=== PATIENT | female | born 1935 | race Caucasian/White ===

== ENCOUNTER 2016-08-02 15:39 | Observation (INO) | payer OTHER ==
--- NOTE | ~2016-08-02 | CO ---
Unit #: [id number] #: [id number] Patient: DAVE WU [id number] [facility] [address], [place] [address] [id number] I MR#: [id number] NAME: DAVE WU ROOM: 54 Age: 80 Sex: F Admission Date: 08/02/2016 : 1935 Attending Physician: Tad Hong M.D. Primary Care Physician: Lizbeth Lawler M.D. Consultation Date: 08/03/2016 CONSULTATION REPORT CHIEF COMPLAINT Left elbow pain. HISTORY OF PRESENT ILLNESS Ms. Allen is an 80-year-old female with a history of aortic stenosis, status post TAVR, chronic systolic congestive heart failure, and aortic aneurysm with chronic venous insufficiency, and COPD, who presented to the [facility] ER yesterday after a fall. She states that she was walking to her chair when she began to weak and fell to the ground. She was experiencing left elbow pain after the fall and was brought to the ER for further workup. She denied any lightheadedness or palpitations prior to this episode. X-rays were taken of the left elbow in the ER, which revealed positive fat pad sign. Orthopedics were then consulted for further workup. She continues to locate the majority of her pain in the left elbow. She is currently in a posterior long-arm splint. The patient's daughter is in room with her today and is helping to give some other history. PAST MEDICAL HISTORY 1. Hypertension. 2. Left bundle-branch block. 3. Aortic stenosis. 4. Chronic systolic congestive heart failure. 5. Aortic aneurysm. 6. Chronic venous insufficiency. 7. COPD. 8. Hypothyroidism. 9. Osteopenia. 10. Depression. 11. Hyperlipidemia. 12. Insomnia. 13. Obesity. 14. Weakness. PAST SURGICAL HISTORY 1. Aortic valve replacement in 09/2012. 2. Hysterectomy. 3. PCI with stent x3. ALLERGIES To atorvastatin. MEDICATIONS Synthroid 112 mcg 1 tablet p.o. daily; Coreg 12.5 mg tab q.a.m. plus 6.25 Unit #: [id number] #: [id number] Patient: DAVE WU mg tab q.a.m.; Plavix 75 mg p.o. daily; Lasix 40 mg Wednesday, Wednesday, , and Wednesday; Bumex 1 mg Wednesday, Wednesday, and Wednesday; potassium 10 mEq p.o. daily; Evista 60 mg p.o. daily; Prozac 20 mg p.o. daily; lisinopril 5 mg p.o. daily; multivitamin 1 tablet p.o. daily; vitamin D3 of 2000 units p.o. daily; vitamin B complex 1 tablet p.o. daily; krill oil 500 mg p.o. daily; pravastatin 40 mg 1 tablet p.o. daily; temazepam 22.5 mg tablet p.o. daily; aspirin 81 mg p.o. daily; Nitrostat 0.4 mg p.o. sublingual as needed for chest pain; DuoNeb; Flovent HFA 1 puff inhalation b.i.d.; Flonase 1 squirt each nostril daily. SOCIAL HISTORY No history of tobacco, alcohol, or illicit drug use. The patient's son lives with her and her daughter frequently visit to assist with any care needs. FAMILY HISTORY Noncontributory to current illness. REVIEW OF SYSTEMS A complete 10-point review of system was completed and are as noted in the HPI. PHYSICAL EXAMINATION GENERAL APPEARANCE: A healthy appearing 80-year-old female, lying in bed, in no acute distress. VITAL SIGNS: Temperature is 98.3, heart rate 69, respiratory rate 16, blood pressure 139/53. HEENT: Pupils are equal, round, and reactive to light. The patient is normocephalic. NECK: Supple without lymphadenopathy or thyromegaly. CHEST: Symmetric chest rise. No increased work of breathing. CARDIOVASCULAR: Regular rate and rhythm. SKIN: Warm and dry without any rash. PSYCHIATRIC: The patient is awake, alert, or oriented x3. The patient is cooperative. NEUROLOGIC: Cranial nerves II through XII are grossly intact. EXTREMITIES: The left upper extremity was examined. She is in a long-arm posterior splint. She is neurovascularly intact in the median, ulnar, and radial nerves. She has normal sensation to light touch in all 5 digits. Her fingers are warm and well perfused. DIAGNOSTIC STUDIES LABORATORY RESULTS: CBC showed white blood cell count of 8.9, hemoglobin of 11.7, hematocrit of 36.9. IMAGING STUDIES: Plain film radiographs reviewed of the left elbow, which revealed positive anterior and posterior fat pad sign. There is no evidence of a well-defined fracture. X-rays were also reviewed of the left shoulder, humerus, forearm, pelvis, tibia, fibula, knee, which were all negative for any acute fracture. ASSESSMENT Left elbow pain and fusion. PLAN She has left elbow pain and fusion after a fall yesterday at her home. X-rays of the left elbow revealed positive anterior and posterior fat pad Unit #: [id number] #: [id number] Patient: DAVE WU sign concerning for possible central fracture. We will go ahead and treat this injury as a fracture and keep her in the posterior long-arm splint. No further workup or surgery is indicated at this time. She remain nonweightbearing of the left upper extremity. She may wear her sling as needed for comfort. PT and OT will work with her in the hospital on left hand range of motion as well as lower extremity strengthening. The case planner was consulted to evaluate for home health needs regarding physical therapy and occupational therapy. She will follow up with Dr. Kelly in the office in 2 weeks' time for repeat x-rays of the left elbow. Dictated by... Emma Darling APRN for Amarilys Kilpatrick/terry TD: 08/03/2016 23:43 JOB #: [id number] CONSULTATION REPORT Page 1 of 1 X EMMA DARLING APRN X CONSULTATION REPORT
--- NOTE | ~2016-08-02 | CR172 ---
[facility] A Service of [facility] & [facility] RADIOLOGY TEXT RESULTS PATIENT: DAVE WU LOCATION: [facility] 547- : 35 UNIT #: [id number] AGE: [address]: Tad Hong MD SEX: F ORDER DR: [id number] [facility] [address] [place], [place] [address] [id number] I MR#: [id number] Acc #: [id number] NAME: DAVE WU : 1935 SEX: F STUDY DATE/TIME: 08/02/2016 15:27 UNIT: CEDOF ROOM: 15179 STUDY DESCRIPTION: CR Knee 3 Views Lt Attending Physician: Heron Hilario M.D. Ordering Physician: Dante Moon M.D. Primary Care Physician: Lizbeth Lawler M.D. MEDICAL IMAGING REPORT This report is preliminary unless electronic signature is present EXAM Left knee series, 08/02/2016 COMPARISON Left tib-fib series, 08/02/2016 HISTORY Left knee pain from 08/02/2016 post fall. FINDINGS 3 views of the left knee were obtained. There is mild diffuse bony osteopenia. No acute displaced fracture, dislocation or joint effusion is seen. Surrounding soft tissues do not demonstrate any focal significant abnormality or radiopaque foreign body. Dictated by... Michelle Browning M.D. THIS IS AN ELECTRONICALLY VERIFIED REPORT Michelle Browning M.D. at 08/03/2016 1:47 PM CPR/ljd TD: 08/03/2016 03:25 JOB #: [id number] MEDICAL IMAGING REPORT Page 1 of 1 COPY
--- NOTE | ~2016-08-02 | CR71 ---
[facility] A Service of [facility] & [facility] RADIOLOGY TEXT RESULTS PATIENT: DAVE WU LOCATION: [place] [address] : 35 UNIT #: [id number] AGE: [address]: Tad Hong MD SEX: F ORDER DR: [id number] [facility] [address] [place], [place] [address] [id number] I MR#: [id number] Acc #: [id number] NAME: DAVE WU : 1935 SEX: F STUDY DATE/TIME: 08/02/2016 15:17 UNIT: [facility] ROOM: 81398 STUDY DESCRIPTION: CR Chest Single View Attending Physician: Heron Hilario M.D. Ordering Physician: Dante Moon M.D. Primary Care Physician: Lizbeth Lawler M.D. MEDICAL IMAGING REPORT This report is preliminary unless electronic signature is present EXAM Single view of the chest, 08/02/2016 at 1517 hours. COMPARISON Single view of the chest dated 08/09/2015. HISTORY Shortness of air with activity, chest pain on 08/02/2016. FINDINGS Single view of the chest was obtained. No significant interval change. Stents are noted in the aorta along the arch and also in the region of the aortic valve and proximal aorta. Stable. Correlate with procedural notes. There is a stable prominent heart is this poor inspiratory film. Lungs do not demonstrate any significant abnormality. Dictated by... Michelle Browning M.D. THIS IS AN ELECTRONICALLY VERIFIED REPORT Michelle Browning M.D. at 08/03/2016 1:47 PM CPR/ljd TD: 08/03/2016 01:59 JOB #: [id number] MEDICAL IMAGING REPORT Page 1 of 1 COPY
--- NOTE | ~2016-08-02 | CR93 ---
[facility] A Service of [facility] RADIOLOGY TEXT RESULTS PATIENT: DAVE WU LOCATION: [facility] 547-01 : 35 UNIT #: [id number] AGE: [address]: Tad Hong MD SEX: F ORDER DR: [id number] [facility] [address] [place], [place] [address] [id number] I MR#: [id number] Acc #: [id number] NAME: DAVE WU : 1935 SEX: F STUDY DATE/TIME: 08/02/2016 15:20 UNIT: CEDOF ROOM: 99171 STUDY DESCRIPTION: CR Elbow Min 3 Views Lt Attending Physician: Heron Hilario M.D. Ordering Physician: Dante Moon M.D. Primary Care Physician: Lizbeth Lawler M.D. MEDICAL IMAGING REPORT This report is preliminary unless electronic signature is present EXAM Left elbow series, 08/02/2016 COMPARISON Left humerus and forearm series dated 08/02/2016. HISTORY Left elbow pain from 08/02/2016. FINDINGS 3 views of the left elbow were obtained. No obvious acute displaced fracture or dislocation is seen. There is a small anterior and posterior fat pad sign noted. Minimal effusion cannot be completely excluded but there is no significant joint effusion or obvious acute displaced fracture noted. No destructive bony mass is seen. Soft tissues do not demonstrate a radiopaque foreign body. IMPRESSION Anterior and posterior fat pads are noted but they are small. Mild effusion cannot be completely excluded. Well-defined fracture is not seen, particularly in the radial head and neck. If there is persistent clinical concern for a subtle occult fracture, followup can be obtained. Dictated by... Michelle Browning M.D. THIS IS AN ELECTRONICALLY VERIFIED REPORT Michelle Browning M.D. at 08/03/2016 1:47 PM CPR/ljd TD: 08/03/2016 02:05 [facility] A Service of [facility] RADIOLOGY TEXT RESULTS PATIENT: DAVE WU LOCATION: [facility] 547-01 : 35 UNIT #: [id number] AGE: [address]: Tad Hong MD SEX: F ORDER DR: JOB #: [id number] MEDICAL IMAGING REPORT Page 1 of 1 COPY
--- NOTE | ~2016-08-02 | CR229 ---
[facility] A Service of [facility] & [facility] RADIOLOGY TEXT RESULTS PATIENT: DAVE WU LOCATION: [facility] 547-01 : 35 UNIT #: [id number] AGE: [address]: Tad Hong MD SEX: F ORDER DR: [id number] [facility] [address] [place], [place] [address] [id number] I MR#: [id number] Acc #: [id number] NAME: DAVE WU : 1935 SEX: F STUDY DATE/TIME: 08/02/2016 15:18 UNIT: CEDOF ROOM: 54068 STUDY DESCRIPTION: CR Shoulder Min 2 View Lt Attending Physician: Heron Hilario M.D. Ordering Physician: Dante Moon M.D. Primary Care Physician: Lizbeth Lawler M.D. MEDICAL IMAGING REPORT This report is preliminary unless electronic signature is present EXAM Left shoulder series, 08/02/2016 COMPARISON None. HISTORY Left shoulder pain today. FINDINGS 3 views of the left shoulder were obtained. No acute displaced fracture or dislocation. Mild arthritic changes are noted. Surrounding soft tissues are unremarkable. There is a vascular stent graft involving the aortic arch and portions of the adjacent descending thoracic aorta. Dictated by... Michelle Browning M.D. THIS IS AN ELECTRONICALLY VERIFIED REPORT Michelle Browning M.D. at 08/03/2016 1:47 PM CPR/ljd TD: 08/03/2016 02:22 JOB #: [id number] MEDICAL IMAGING REPORT Page 1 of 1 COPY
--- NOTE | ~2016-08-02 | CR206 ---
[facility] A Service of [facility] & [facility] RADIOLOGY TEXT RESULTS PATIENT: DAVE WU LOCATION: [facility] 547- : 35 UNIT #: [id number] AGE: [address]: Tad Hong MD SEX: F ORDER DR: [id number] [facility] [address] [place], [place] [address] [id number] I MR#: [id number] Acc #: [id number] NAME: DAVE WU : 1935 SEX: F STUDY DATE/TIME: 08/02/2016 15:26 UNIT: CEDOF ROOM: 76727 STUDY DESCRIPTION: CR Pelvis 1 or 2 Views Attending Physician: Heron Hilario M.D. Ordering Physician: Dante Moon M.D. Primary Care Physician: Lizbeth Lawler M.D. MEDICAL IMAGING REPORT This report is preliminary unless electronic signature is present EXAM Single view of the pelvis, 08/02/2016 COMPARISON None. HISTORY Patient fell today with pelvic pain. FINDINGS Single view of the pelvis was obtained. Mild arthritic changes are in bilateral hip joints, bilateral SI joints and lower lumbar spine. No well defined acute displaced fracture or dislocation is seen. There is mild diffuse bony osteopenia. Moderate stool burden is noted in the visualized rectosigmoid colon. Phleboliths and arteriovascular calcifications are noted in the pelvic soft tissues and in the right upper leg. Dictated by... Michelle Browning M.D. THIS IS AN ELECTRONICALLY VERIFIED REPORT Michelle Browning M.D. at 08/03/2016 1:47 PM CPR/ljcindy TD: 08/03/2016 02:33 JOB #: [id number] MEDICAL IMAGING REPORT Page 1 of 1 COPY
--- NOTE | ~2016-08-02 | CT71 ---
[facility] A Service of [facility] & [facility] RADIOLOGY TEXT RESULTS PATIENT: DAVE WU LOCATION: [facility] 547-01 : 35 UNIT #: [id number] AGE: [address]: Tad Hong MD SEX: F ORDER DR: [id number] [facility] [address] [place], [place] [address] [id number] I MR#: [id number] Acc #: [id number] NAME: DAVE WU : 1935 SEX: F STUDY DATE/TIME: 08/02/2016 15:57 UNIT: CEDOF ROOM: 31274 STUDY DESCRIPTION: CT Head Wo Contrast Attending Physician: Heron Hilario M.D. Ordering Physician: Dante Moon M.D. Primary Care Physician: Lizbeth Lawler M.D. MEDICAL IMAGING REPORT This report is preliminary unless electronic signature is present EXAM CT head without contrast, 08/02/[address] head without contrast dated 08/09/2015. HISTORY Fell at 1300 hours. Dizziness caused fall. This CT exam was performed with one or more of the following radiation dose reduction techniques: automatic exposure control, adjustment of mA and/or kV according to patient size, and iterative reconstruction. FINDINGS CT of the head was obtained without contrast in the axial plane as per the protocol. Patchy severe hypodensities are noted in the brain involving subcortical white matter, periventricular white matter, bilateral basal ganglia. Atherosclerotic arteriovascular calcifications are noted in bilateral intracranial internal carotid arteries. Nasal septum is deviated to the right with an apical spur. There is severe left sphenoid sinus mucosal thickening with obstruction of the left sphenoethmoid recess. Wall thickening of the left sphenoid sinus is noted suggestive of bony osteitis. Mastoid air cells are well-aerated. Orbits and the ocular structures do not demonstrate any significant abnormality. There appears to be focal asymmetrical soft tissue irregular density in the left posterolateral suboccipital region measuring 1.3 cm in thickness and has a greatest length of 2.8 cm. It could be related to swelling in this region. No underlying fracture or acute intracranial hemorrhage is seen. IMPRESSION 1. Redemonstrated are the patchy hypodensities in the brain, likely related to moderate to severe chronic microvascular ischemic change [facility] A Service of [facility] & [facility] RADIOLOGY TEXT RESULTS PATIENT: DAVE WU LOCATION: [facility] 547-01 : 35 UNIT #: [id number] AGE: [address]: Tad Hong MD SEX: F ORDER DR: based on age and statistics. Evaluation of superimposed acute lacunar infarcts are limited in this modality. 2. No acute intracranial hemorrhage or midline shift. 3. There is dilatation of the ventricles, stable when compared to the prior study and could be related to central atrophy. Developing normal pressure hydrocephalus can be considered in the appropriate clinical setting. It has not significantly worsened in 1 year. 4. There is an interval new asymmetrical soft tissue density noted within the left posterolateral suboccipital scalp and soft tissue. It measures about 1.3 cm in thickness and is about 2.8 cm in greatest length. It represents inflammatory post-traumatic or post infectious change . Correlate clinically. No underlying fracture. Dictated by... Michelle Browning M.D. THIS IS AN ELECTRONICALLY VERIFIED REPORT Michelle Browning M.D. at 08/03/2016 1:48 PM CPR/ljcinyd TD: 08/03/2016 03:50 JOB #: [id number] MEDICAL IMAGING REPORT Page 1 of 1 COPY
--- NOTE | ~2016-08-02 | CO ---
Unit #: [id number] #: [id number] Patient: DAVE WU [id number] [place] [id number] [facility] [place], [place] [address] [id number] I MR#: [id number] NAME: DAVE WU ROOM: 547 Age: 80 Sex: F Admission Date: 08/02/2016 : 1935 Attending Physician: Tad Hong M.D. Primary Care Physician: Lizbeth Lawler M.D. CONSULTATION REPORT PRIMARY CARE PHYSICAN. REASON FOR CONSULTATION Cardiac management. HISTORY OF PRESENT ILLNESS This is an 80-year-old white female, who is known to Dr. Salinas, and has a history of coronary artery disease, where she had stent placement to the right coronary artery in 2012. At that time, the circumflex artery had nonobstructive disease of 40% to 50%. She is known to have aortic stenosis and underwent TAVR in 09/2012 at [facility] [place] [facility]. She is admitted after a fall at home. She is a poor historian, but the daughter who is at bedside stated that she was walking in her home from one room to other and felt weakness. Her son who was assisting her went to grab a chair, but before he returned she fell to the floor. She denies any syncope or loss of consciousness. She has been progressively weak since her TAVR in 2012. She was diagnosed with lung cancer a year ago and opted not to proceed with any treatment. According to the daughter, she had a PET scan done last year and the cancer was limited to the lungs at that time. The patient states she is short of breath all the time, but denies leg edema, paroxysmal nocturnal dyspnea, or orthopnea. She has no reported chest pain, palpitations, or dizziness. In the emergency room, she was hypertensive with blood pressure 207/80 mmHg. Troponin is negative. There were no acute EKG changes. She had a complaint of ankle and elbow pain and the films were concerning for possible subtle fracture in her left elbow, but no surgical intervention is needed at this time. Orthostatic blood pressures were negative. There was no evidence of arrhythmias noted this admission. Electrolytes within normal limits. TSH is normal. PAST MEDICAL HISTORY 1. PCI with drug-eluting stent to the proximal and mid right coronary artery with drug-eluting stents x2 to the mid and proximal right coronary artery on 09/07/2012 at [facility]. Circumflex artery at that time 40% to 50%, not dilated. No information on LAD. 2. Aortic stenosis, status post TAVR in 09/2012 at [facility]. 3. Hypertension. 4. Hyperlipidemia. 5. Left bundle-branch block. 6. Congestive heart failure. 7. COPD. 8. Asthma. 9. Hypothyroidism. Unit #: [id number] #: [id number] Patient: DAVE WU 10. Obesity. 11. Left upper lobe cancer, declined treatment. 12. Former smoker. PAST SURGICAL HISTORY 1. Hysterectomy. 2. TAVR. SOCIAL HISTORY The patient is cared for by her son and daughter. She ambulates with a walker. She quit smoking years ago. She denies illicit drug or alcohol use. FAMILY HISTORY Father in his 70s from myocardial infarction. Had a brother, who in his 70s from congestive heart failure, but he had heart attack. ALLERGIES Lipitor. HOME MEDICATIONS Levothyroxine 112 mcg daily; carvedilol 18.75 mg daily; carvedilol 12.5 mg q.h.s.; Plavix 75 mg daily; furosemide 40 mg four times a week; Bumex 1 mg three times a week; potassium chloride 10 mEq daily; Evista 60 mg daily; Prozac 20 mg q.a.m., 10 mg q.p.m.; lisinopril 5 mg daily; multivitamin one tablet daily; vitamin D3 2000 units daily; vitamin B complex one tablet daily; krill oil 500 mg daily; pravastatin 40 mg q.h.s.; Restoril 22.5 mg q.h.s.; aspirin 81 mg daily; Nitrostat 0.4 mg sublingual q.5 minutes x3 p.r.n.; Flonase one spray each nostril daily; Combivent mini-nebs q.4 hours; Flovent inhaled b.i.d.; MiraLAX 17 g daily. REVIEW OF SYSTEMS CONSTITUTIONAL: Negative for fever or chills. Has no report of weight gain or weight loss. Positive for weakness. HEENT: No headache, hearing, or vision changes, difficulty with swallowing. No dizziness. CARDIOVASCULAR: Has no symptoms of angina. Denies palpitations. No paroxysmal nocturnal dyspnea or orthopnea. Denies syncope or near syncope. RESPIRATORY: Reports persistent dyspnea at rest and on exertion. No cough or hemoptysis. GASTROINTESTINAL: No abdominal pain, nausea, or vomiting. No constipation or melena. EXTREMITIES: Negative for lower extremity edema. PHYSICAL EXAMINATION VITAL SIGNS: Blood pressure 139/53, heart rate 70, temperature 97.5, BMI of 38. GENERAL: This is an 80-year-old elderly white female, who is in no acute respiratory distress. NEUROLOGIC: She is awake, alert, and oriented. There were no focal weaknesses. NECK: Trachea is midline. No thyromegaly or lymphadenopathy. No jugular venous distention. HEART: S1 and S2. Heart sounds are normal. No murmurs, rubs, or clicks. Regular rate and rhythm. LUNGS: With diminished breath sounds without rales, rhonchi, or wheezes. ABDOMEN: Soft and nontender with bowel sounds are present. EXTREMITIES: Without leg edema. Unit #: [id number] #: [id number] Patient: DAVE WU SKIN: Warm and dry. DIAGNOSTIC STUDIES LABORATORY RESULTS: Glucose 85, BUN 32, creatinine 1.2. Sodium 139, potassium 4.1. Troponin less than 0.05 and less than 0.03. White count 8.2, hemoglobin 11.4, hematocrit 35.7, platelet count is 188. IMAGING STUDIES: Chest x-ray shows no active disease. CARDIOVASCULAR STUDIES: EKG shows normal sinus rhythm with a rate of 72 beats per minute with a left bundle-branch block. IMPRESSION 1. Weakness, status post fall. 2. Hypertension. 3. Hyperlipidemia. 4. History of transcatheter aortic valve replacement in 09/2012. 5. Coronary artery disease with percutaneous coronary intervention and stent to the proximal and mid right coronary artery in 08/2012. 6. Old left bundle-branch block. 7. Chronic heart failure. 8. Ankle and elbow pain. PLAN 1. Cardiology was consulted for cardiac management. There was no evidence of an acute myocardial infarction with negative troponin. EKG shows left bundle-branch block, which is documented per EKG in 2016. 2. Records from [place] were obtained, which revealed percutaneous coronary intervention and stent to the right coronary artery in 2012. Circumflex artery had nonobstructive disease. No report if there was any LAD stenosis. 3. No heart failure is noted on examination. 4. Orthostatic blood pressures are normal. 5. TSH is normal. 6. We will obtain 2D echocardiogram to evaluate left ventricular systolic function. 7. Follow up with Dr. Salinas at discharge. Thank you for allowing us to assist in this patient's care. Dictated by... Florin Palmer/terry TD: 08/04/2016 04:35 JOB #: [id number] CC: Amarilys Bryant M.D. Unit #: [id number] #: [id number] Patient: DAVE WU CONSULTATION REPORT Page 1 of 1 X Austin Montez MORNING CAREGIVER X CONSULTATION REPORT
--- NOTE | ~2016-08-02 | EKG ---
PATIENT: DAVE WU UNIT #: [id number] Ventricular Rate: 72 BPM Atrial Rate: 72 BPM P-R Interval: 126 ms QRS Duration: 160 ms Q-T Interval: 474 ms QTC Calculation(Bezet): 519 ms P [place]: 62 degrees Calculated R [place]: 4 degrees Calculated T [place]: 140 degrees Diagnosis Line: Normal sinus rhythm Diagnosis Line: Left bundle branch block Diagnosis Line: Abnormal ECG Diagnosis Line: When compared with ECG of 09-AUG-2015 10:22, Diagnosis Line: No significant change was found Diagnosis Line: Confirmed by TAYLOR MALDONADO MD ([id number]) on 08/02/2016 Diagnosis Line: 10:02:06 PM INTERPRETING MD: JOEL MARTINEZ
--- NOTE | ~2016-08-02 | CR252 ---
[facility] A Service of [facility] & [facility] RADIOLOGY TEXT RESULTS PATIENT: DAVE WU LOCATION: [facility] 547- : 35 UNIT #: [id number] AGE: [address]: Tad Hong MD SEX: F ORDER DR: [id number] [facility] [address] [place], [place] [address] [id number] I MR#: [id number] #: [id number] NAME: DAVE WU : 1935 SEX: F STUDY DATE/TIME: 08/02/2016 15:28 UNIT: CED ROOM: 56915 STUDY DESCRIPTION: CR Tibia and Fibula 2 Views Lt Attending Physician: Heron Hilario M.D. Ordering Physician: Dante Moon M.D. Primary Care Physician: Lizbeth Lawler M.D. MEDICAL IMAGING REPORT This report is preliminary unless electronic signature is present EXAM Left tib-fib series, 08/02/2016 COMPARISON Left knee series, 08/02/2016. HISTORY Left leg pain following fall today. FINDINGS 2 views of the left tibia and fibula were obtained. No acute displaced fracture or dislocation. There appears to be mild diffuse bony osteopenia. Soft tissues demonstrate mild atherosclerotic vascular calcifications. Dictated by... Michelle Browning M.D. THIS IS AN ELECTRONICALLY VERIFIED REPORT Michelle Browning M.D. at 08/03/2016 1:47 PM CPR/ljd TD: 08/03/2016 03:27 JOB #: [id number] MEDICAL IMAGING REPORT Page 1 of 1 COPY
--- NOTE | ~2016-08-02 | HP ---
Unit #: [id number] #: [id number] Patient: DAVE WU [id number] [facility]. [place], [place] [address] [id number] I MR#: [id number] NAME: DAVE WU ROOM: 547 Age: 80 Sex: F Admission Date: 08/02/2016 : 1935 Attending Physician: Tad Hong M.D. Primary Care Physician: Lizbeth Lawler M.D. HISTORY AND PHYSICAL CHIEF COMPLAINT "I fell." HISTORY OF PRESENT ILLNESS An 80-year-old female with a history of aortic stenosis status post TVAR, chronic systolic congestive heart failure and aortic aneurysm with chronic venous insufficiency and COPD, who presents with an episode where she felt really weak and she could not make it to the chair and she fell. She seemed to have contused her left elbow and x-rays done in the ER seem to reveal a questionable left elbow fracture. She denies any lightheadedness prior to this and denies any chest pain or palpitations prior to this episode. The last time she fell was about a year ago. Her son lives with her. The patient is a decent historian; however, history is from collateral sources which include her daughter. Other than that, she denies any dysuria or frequency. The patient denies any history of recent fall. PAST MEDICAL HISTORY Hypertension, history of left bundle branch block, aortic stenosis, chronic systolic congestive heart failure, aortic aneurysm, chronic venous insufficiency, COPD, (1) , hypothyroidism, osteopenia, major depressive disorder, hyperlipidemia, insomnia, obesity and weakness. PAST SURGICAL HISTORY Aortic valve replacement in September of 2012, hysterectomy, PCI with stents x3. SOCIAL HISTORY No tobacco use, alcohol use or illicit drug use. The patient's son lives with her. ALLERGIES Atorvastatin. MEDICATIONS 1. Levothyroxine 112 mcg one tablet every morning. 2. Coreg 12.5 mg one tablet in the morning and one tablet at time plus Coreg 6.25 mg one tablet p.o. in the morning. 3. Plavix 75 mg p.o. daily. 4. Lasix 40 mg Wednesday, Wednesday, and Wednesday. 5. Bumex 1 mg Wednesday, Wednesday, Wednesday. 6. Potassium 10 mEq one p.o. daily. 7. Evista 60 mg one p.o. daily. 8. Prozac 20 mg one p.o. daily. 9. Lisinopril 5 mg one p.o. daily. Unit #: [id number] #: [id number] Patient: DAVE WU 10. Multivitamin one tablet p.o. daily. 11. Vitamin D3 2,000 units p.o. daily. 12. Vitamin B complex one tablet p.o. daily. 13. Krill Oil 500 mg p.o. daily. 14. Pravastatin 40 mg one tablet p.o. daily. 15. Temazepam 22.5 mg one tablet p.o. daily. 16. Aspirin 81 mg p.o. daily. 17. Nitrostat 0.4 mg p.o. sublingual as needed p.r.n. chest pain. 18. DuoNeb. 19. Flovent HFA one puff inhalation b.i.d. 20. Flonase nasal one squirt each nostril daily. REVIEW OF SYSTEMS A complete 10-point review of systems has been done and pertinent positives are noted in the HPI. PHYSICAL EXAMINATION GENERAL APPEARANCE: Comfortable, not in distress. VITAL SIGNS: Blood pressure 187/86. Pulse 75. Respiratory rate 16. Temperature 97.8. HEENT: Pupils were equal, round, reactive to light and accommodation. NECK: Supple without thyromegaly. CHEST: Decreased breath sounds lung bases posteriorly. CARDIOVASCULAR: First and second heart sounds. A soft systolic murmur. EXTREMITIES: Bruising of the left elbow. The patient was able to move her left elbow without extreme limitation of motion. No lower extremity edema. LYMPHATIC: No palpable lymphadenopathy that I could appreciate. SKIN: Warm and dry without no rashes. DIAGNOSTIC STUDIES LABORATORY: Glucose 94, BUN and creatinine 36 and 1.2, sodium and potassium 143 and 4.3, chloride 106, bicarb 29, AST and ALT 18 and 14 respectively. CBC: WBC 8.9, hemoglobin and hematocrit 11.7 and 36.9 with a platelet count of 205. IMAGING: She had x-rays of her left shoulder, humerus, elbow, femur and pelvis and she had a chest x-ray as well. On the elbow, there seemed to be accentuation anterior and posterior fat pad which may indicate a subtle fracture. CARDIOVASCULAR: She had an EKG which showed normal sinus rhythm with left bundle branch block. Left bundle branch block is not new. ASSESSMENT AND PLAN 1. Presyncope. I am not exactly sure if this has anything to do with her atherosclerotic cardiovascular disease versus her medications. We will admit her for 23-hour observation and get orthostatic vitals. The patient seems to be stable volume roche with no evidence of bleeding. 2. Fall. This may be secondary to patient's debility with multiple comorbidities. We will get Physical Therapy, Occupational Therapy to see the patient. 3. Left elbow pain/fracture. We will get Ortho to see the patient. 4. CAD. 5. Aortic valve replacement. 6. Anxiety/depression. 7. CODE status is a FULL CODE. Unit #: [id number] #: [id number] Patient: DAVE WU 8. Disposition: This will be dependent on her symptomatology. She should be able to tolerate physical therapy appropriately. She will be stable for discharge within one to two days. Dictated by Amarilys Mead TD: 08/03/2016 07:40 JOB #: [id number] HISTORY AND PHYSICAL Page 1 of 1 X Heron Hilario MD HISTORY AND PHYSICAL
--- NOTE | ~2016-08-02 | DS ---
Unit #: [id number] #: [id number] Patient: DAVE WU [id number] [facility]. [place], [place] [address] [id number] I MR#: [id number] NAME: DAVE WU ROOM: 547 Age: 80 Sex: F Admission Date: 08/02/2016 : 1935 Discharge Date: 08/04/2016 Attending Physician: Tad Hong M.D. Primary Care Physician: Lizbeth Lawler M.D. DISCHARGE SUMMARY CONSULTANTS 1. Dr. Jiménez. 2. Dr. Kelly. ADMITTING DIAGNOSES 1. Fall. 2. History of aortic stenosis, status post transcatheter aortic valve replacement. 3. History of chronic systolic heart failure. 4. History of aortic aneurysm. 5. History of chronic obstructive pulmonary disease. 6. Laceration on the left elbow, status post suturing. 7. Left elbow pain and effusion with positive fat pad sign. Orthopedics recommends to treat as a fracture with nonweightbearing. The splint was removed secondary to increase in pain. HISTORY OF PRESENT ILLNESS The patient is an 80-year-old lady with multiple medical problems including aortic stenosis, status post TAVR, chronic systolic heart failure, and history of coronary artery disease, status post stent, who follows with Dr. Salinas at [facility], who presented to the hospital mainly because of fall and left elbow fracture. HOSPITAL COURSE She had lacerations on the left elbow which were sutured in the emergency room. She was seen by Cardiology who recommended no further workup at this point. She was seen by Orthopedic Surgery. They recommended her to follow in the clinic as an outpatient. She was offered home healthcare but she refused. I spoke with the patient and her daughter, and she wants to go home. I requested her to follow up with her electrician control equipment at [facility] and with primary care physician and also with Orthopedics in two weeks. PHYSICAL EXAMINATION ON DAY OF DISCHARGE VITAL SIGNS: Temperature 98.3, pulse rate 70, respirations 20, and blood pressure 150/55. GENERAL: Patient is alert and oriented x3, lying in the bed in no acute distress. HEENT: Normocephalic and atraumatic. No icterus. Pupils are equal, round, and reactive to light and accommodation. Extraocular muscles intact. NECK: Supple. No JVD. HEART: S1 and S2, regular rate and rhythm. CHEST: Bilateral equal air entry, clear to auscultation. ABDOMEN: Soft and nontender. Unit #: [id number] #: [id number] Patient: DAVE WU EXTREMITIES: Left laceration site looks clean. DISCHARGE MEDICATIONS 1. Combivent 3 mL mini-neb q.4 p.r.n. for shortness of breath. 2. Flonase 1 spray for allergies. 3. Flovent Diskus 250 mcg inhalation twice daily. 4. Fluoxetine (Prozac) 20 mg in the morning and 10 mg at bedtime. 5. Restoril 22.5 mg at bedtime p.r.n. insomnia. Kindly note, I am not giving any new prescription. 6. Coreg 18.75 mg in the morning and 12.5 mg at bedtime. 7. MiraLax 17 grams p.o. daily. 8. Bumex 1 mg p.o. 3 times weekly. 9. Lasix 40 mg on Wednesday, Wednesday, , and Wednesday. 10. Pravastatin 40 mg daily. 11. Lisinopril 5 mg daily. 12. Evista 60 mg daily. 13. Multivitamin 1 capsule p.o. daily. 14. Aspirin 81 mg daily. 15. Hydrocodone/Tylenol 5/325 mg 1 tab p.o. q.4 p.r.n. for pain. I am giving a prescription for 12 capsules. 16. Krill oil capsule 500 mg daily. 17. Plavix 75 mg daily. 18. KCl 10 mEq daily. 19. Synthroid 112 mcg p.o. daily. 20. Nitroglycerin 0.4 mg sublingual p.r.n. for chest pain. 21. Vitamin B-Complex 1 capsule p.o. daily. 22. Vitamin D3 at 2000 units p.o. daily. DISCHARGE INSTRUCTIONS All the discharge instructions were explained in detail to the patient. Total time spent in her care 35 minutes. Dictated by... Amarilys Choudhary/lorene TD: 08/04/2016 17:40 JOB #: [id number] DISCHARGE SUMMARY Page 1 of 1 X X DISCHARGE SUMMARY
--- NOTE | ~2016-08-02 | CR156 ---
[facility] A Service of [facility] & [facility] RADIOLOGY TEXT RESULTS PATIENT: DAVE WU LOCATION: [facility] 547- : 35 UNIT #: [id number] AGE: [address]: Tad Hong MD SEX: F ORDER DR: [id number] [facility] [address] [place], [place] [address] [id number] I MR#: [id number] Acc #: [id number] NAME: DAVE WU : 1935 SEX: F STUDY DATE/TIME: 08/02/2016 15:19 UNIT: CEDOF ROOM: 73321 STUDY DESCRIPTION: CR Humerus Min 2 View Lt Attending Physician: Heron Hilario M.D. Ordering Physician: Dante Moon M.D. Primary Care Physician: Lizbeth Lawler M.D. MEDICAL IMAGING REPORT This report is preliminary unless electronic signature is present EXAM Left humerus series, 08/02/2016 COMPARISON None. HISTORY Left humerus pain from 08/02/2016. FINDINGS 2 views of the left humerus was obtained. There is no evidence of fracture, dislocation, or radiopaque foreign body. No focal bone lesions are seen. IMPRESSION Normal humerus. Dictated by... Michelle Browning M.D. THIS IS AN ELECTRONICALLY VERIFIED REPORT Michelle Browning M.D. at 08/03/2016 1:47 PM CPR/ljd TD: 08/03/2016 02:02 JOB #: [id number] MEDICAL IMAGING REPORT Page 1 of 1 COPY
--- NOTE | ~2016-08-02 | CR132 ---
[facility]. [facility] A Service of [facility] & [facility] RADIOLOGY TEXT RESULTS PATIENT: DAVE WU LOCATION: [facility] 547- : 35 UNIT #: [id number] AGE: [address]: Tad Hong MD SEX: F ORDER DR: [id number] [facility] [address] [place], [place] [address] [id number] I MR#: [id number] Acc #: [id number] NAME: DAVE WU : 1935 SEX: F STUDY DATE/TIME: 08/02/2016 15:23 UNIT: CEDOF ROOM: 18564 STUDY DESCRIPTION: CR Forearm 2 View Lt Attending Physician: Heron Hilario M.D. Ordering Physician: Dante Moon M.D. Primary Care Physician: Lizbeth Lawler M.D. MEDICAL IMAGING REPORT This report is preliminary unless electronic signature is present EXAM Left forearm series, 08/02/2016 COMPARISON None. HISTORY Left forearm pain on 08/02/2016 post fall. FINDINGS Two views of the left forearm were obtained. No well defined acute displaced fracture or dislocation is discerned based on the current study. Refer to the left elbow series. Dictated by... Michelle Browning M.D. THIS IS AN ELECTRONICALLY VERIFIED REPORT Michelle Browning M.D. at 08/03/2016 1:47 PM CPR/ljcindy TD: 08/03/2016 02:27 JOB #: [id number] MEDICAL IMAGING REPORT Page 1 of 1 COPY
[2016-08-02 15:21] LABS: BASOPHIL# 0.1 X10e3 (0-0.3); EOSINOPHIL# 0.3 X10e3 (0-0.7); EOSINOPHIL% 3.2 % (0.0-7.0); HEMATOCRIT 36.9 % (35.0-45.0); HEMOGLOBIN 11.7 gm/dL (12.0-16.0); LYMPHOCYTE# 1.8 X10e3 (1.0-3.5); LYMPHOCYTE% 19.9 % (17.0-45.0); MEAN CELL VOLUME 93.5 FL (83-96); MEAN CORPUSCULAR HEMOGLOBIN 29.7 PG (28-34); MEAN CORPUSCULAR HGB CONC 31.8 g/dL (30-36); MEAN PLATELET VOLUME 9.9 FL (6.5-11.5); MONOCYTE# 0.6 X10e3 (0-1.0); MONOCYTE% 6.8 % (3.0-12.0); NEUTROPHIL# 6.1 X10e3 (1.5-7.1); NEUTROPHIL% 69.1 % (40-75); PLATELET COUNT 205 X10e3 (140-420); RED BLOOD COUNT 3.95 X10e (3.90-5.30); RED CELL DISTRIBUTION WIDTH 13.9 % (11.0-15.5); WHITE BLOOD COUNT 8.9 X10e3 (4.0-10.5)
[2016-08-02 15:23] LABS: POC - CKMB <1.0 ng/mL (0.0-7.9); POC - TROPONIN <0.05 ng/mL (<=0.05)
[2016-08-02 15:23] LABS: DIFF IND NO
[2016-08-02 15:32] LABS: PARTIAL THROMBOPLASTIN TIME 24.4 SECONDS (23.5-31.3); PROTHROMBIN TIME (PATIENT) 10.7 SECONDS (9.6-11.5)
[~2016-08-02 15:39] MED LIST: ALBUTEROL17 GM INH; B COMPLEX1 CA1 PO; BUMEX1 MG PO; CLOPIDOGREL75 MG PO; COREG12.5 MG PO; COREG6.25 MG PO; EVISTA60 M1 PO; FLONASE 0.05% N16 G1; LASIX PO; LISINOPRIL5 MG PO; MULTIVITAMINS1 EAC2 PO; NITROSTAT0.4 MG SL; POTASSIUM CHLO10 MEQ PO; PRAVASTATIN SOD40 MG PO; PROZAC40 MG PO; SYNTHROID125 PO; TEMAZEPAM22.5 MG PO; VITAMIN D2000 UNI1 PO; VITAMIN E100 UNI2 PO
[2016-08-02 15:51] LABS: ALBUMIN SERUM 3.6 g/dL (3.5-5.0); BILIRUBIN, DIRECT 0.1 mg/dL (0.0-0.2); BILIRUBIN,INDIRECT 0.5 mg/dL (0.0-0.9); BILIRUBIN,TOTAL 0.6 mg/dL (0.2-2.0); CALCIUM SERUM 9.1 mg/dL (8.4-10.2); CREATININE SERUM 1.2 mg/dL (0.6-1.4); GLOM FILT RATE Estimated 42.7 mL/min (>60); POTASSIUM 4.3 mmol/L (3.5-5.1); PROTEIN TOTAL SERUM 6.8 g/dL (6.0-8.3)
[2016-08-02] MEDS ORDERED: LEVOTHYROXINE112 MCG PO (20:31)
[2016-08-02] MEDS ORDERED: COREG PO (20:33)
[2016-08-02] MEDS ORDERED: COREG12.5 MG PO (20:33)
[2016-08-02] MEDS ORDERED: CLOPIDOGREL75 MG PO (20:34)
[2016-08-02] MEDS ORDERED: BUMEX1 MG PO (20:37)
[2016-08-02] MEDS ORDERED: LASIX PO (20:37)
[2016-08-02] MEDS ORDERED: PROZAC PO (20:38)
[2016-08-02] MEDS ORDERED: EVISTA60 M1 PO (20:38)
[2016-08-02] MEDS ORDERED: POTASSIUM CHLO10 ME1 PO (20:38)
[2016-08-02] MEDS ORDERED: PROZAC10 M1 PO (20:39)
[2016-08-02] MEDS ORDERED: MULTIVITAMINS1 EAC3 PO (20:39)
[2016-08-02] MEDS ORDERED: LISINOPRIL5 MG PO (20:39)
[2016-08-02] MEDS ORDERED: KRILL OIL500 MG PO (20:40)
[2016-08-02] MEDS ORDERED: VITAMIN B-COMP1 EAC2 PO (20:40)
[2016-08-02] MEDS ORDERED: VITAMIN D-32000 UNI1 PO (20:40)
[2016-08-02] MEDS ORDERED: RESTORIL22.5 MG PO (20:41)
[2016-08-02] MEDS ORDERED: PRAVASTATIN SOD40 MG PO (20:41)
[2016-08-02] MEDS ORDERED: ASPIRIN81 MG PO (20:42)
[2016-08-02] MEDS ORDERED: NITROSTAT0.4 MG SL (20:42)
[2016-08-02] MEDS ORDERED: FLONASE ALLERG9.9 ML (20:43)
[2016-08-02] MEDS ORDERED: FLOVENT DISKU250 MCG INH (20:44)
[2016-08-02] MEDS ORDERED: COMBIVENT U/D3 M3 INH (20:44)
[2016-08-02] MEDS ORDERED: MIRALAX17 GM PO (20:45)
[2016-08-02 21:34] LABS: CK TOTAL 48 IU/L (26-140)
[2016-08-03 08:07] LABS: BASOPHIL# 0.1 X10e3 (0-0.3); BASOPHIL% 0.9 % (0-2.5); EOSINOPHIL# 0.2 X10e3 (0-0.7); EOSINOPHIL% 2.7 % (0.0-7.0); HEMATOCRIT 35.7 % (35.0-45.0); HEMOGLOBIN 11.4 gm/dL (12.0-16.0); MEAN CELL VOLUME 93.3 FL (83-96); MEAN CORPUSCULAR HEMOGLOBIN 29.9 PG (28-34); MEAN CORPUSCULAR HGB CONC 32.1 g/dL (30-36); MEAN PLATELET VOLUME 9.8 FL (6.5-11.5); MONOCYTE# 0.7 X10e3 (0-1.0); NEUTROPHIL# 5.2 X10e3 (1.5-7.1); NEUTROPHIL% 63.4 % (40-75); PLATELET COUNT 188 X10e3 (140-420); RED BLOOD COUNT 3.82 X10e (3.90-5.30); RED CELL DISTRIBUTION WIDTH 13.6 % (11.0-15.5); WHITE BLOOD COUNT 8.2 X10e3 (4.0-10.5)
[2016-08-03 08:13] LABS: DIFF IND NO
[2016-08-03 08:31] LABS: CK TOTAL 47 IU/L (26-140)
[2016-08-03 08:34] LABS: URINE SOURCE CLEAN CATCH
[2016-08-03 08:37] LABS: BUN/CREATININE RATIO 27.5; CALCIUM SERUM 8.8 mg/dL (8.4-10.2); CREATININE SERUM 1.2 mg/dL (0.6-1.4); GLOM FILT RATE Estimated 42.7 mL/min (>60); POTASSIUM 4.1 mmol/L (3.5-5.1)
[2016-08-03 08:57] LABS: URINE APPEARANCE CLOUDY; URINE BILIRUBIN NEG (NEG); URINE BLOOD NEG (NEG); URINE COLOR YELLOW; URINE GLUCOSE NEG (NEG); URINE KETONE NEG (NEG); URINE LEUKOCYTE ESTERASE 3+ (NEG); URINE NITRATE NEG (NEG); URINE PROTEIN NEG (NEG); URINE SPECIFIC GRAVITY 1.017 (1.003-1.035)
[2016-08-03 09:00] LABS: CULTURE INDICATED? YES; URBCS1 AUWI 0-2 /[HPF] (0-2); URINE BACTERIA AUWI 4+ (NEGATIVE); URINE SQUAMOUS EPITHELIAL CELL NONE SEEN /[HPF]; UWBCS1 AUWI 25-50 (0-5)
[2016-08-03 09:08] LABS: URINE MUCUS PRESENT
[2016-08-04 05:25] LABS: HEMOGLOBIN 10.7 gm/dL (12.0-16.0); MEAN CELL VOLUME 92.9 FL (83-96); MEAN CORPUSCULAR HEMOGLOBIN 30.1 PG (28-34); MEAN CORPUSCULAR HGB CONC 32.3 g/dL (30-36); MEAN PLATELET VOLUME 9.8 FL (6.5-11.5); RED BLOOD COUNT 3.55 X10e (3.90-5.30); RED CELL DISTRIBUTION WIDTH 13.6 % (11.0-15.5); WHITE BLOOD COUNT 7.5 X10e3 (4.0-10.5)
[2016-08-04 06:26] LABS: BUN/CREATININE RATIO 32.3; CALCIUM SERUM 8.5 mg/dL (8.4-10.2); CREATININE SERUM 1.3 mg/dL (0.6-1.4); GLOM FILT RATE Estimated 38.7 mL/min (>60); POTASSIUM 4.3 mmol/L (3.5-5.1)
[2016-08-04] MEDS ORDERED: HYDROCODON-ACE1 EAC7 PO (15:55)
== END 2016-08-04 17:50 | disposition home or self-care (01) ==
LOC: CED 15:39 → CEDOF 17:45 → C5B 08-03 04:14
PROVIDERS: Emergency Medicine; Family Medicine; Internal Medicine
DX: R55 Syncope and collapse (principal); M25.522 Pain in left elbow; M25.422 Effusion, left elbow; S51.012A Laceration without foreign body of left elbow, initial encounter; W18.30XA Fall on same level, unspecified, initial encounter; Y92.009 Unspecified place in unspecified non-institutional (private) residence as the place of occurrence of the external cause; Z95.2 Presence of prosthetic heart valve; I25.10 Atherosclerotic heart disease of native coronary artery without angina pectoris; Z95.5 Presence of coronary angioplasty implant and graft; F41.8 Other specified anxiety disorders; Z82.49 Family history of ischemic heart disease and other diseases of the circulatory system; Z79.02 Long term (current) use of antithrombotics/antiplatelets; Z79.82 Long term (current) use of aspirin; Z90.710 Acquired absence of both cervix and uterus; Z87.891 Personal history of nicotine dependence
CPT/HCPCS: 12002; 36415; 70450; 71010; 72170; 73030; 73060; 73080; 73090; 73562; 73590; 80048; 80076; 81003; 82550; 82553; 84443; 84484; 85025; 85027; 85610; 85730; 87086; 87088; 87186; 93005; 94664; 94760; 96372; 97110; 97163; 97167; 97530; 97535; 99285; G0378; G8978-GP; G8979-GP; G8987-GO; G8988-GO; J1650